=== PATIENT | female | born 1975 | race Caucasian/White ===

== ENCOUNTER 2016-05-15 10:14 | Outpatient (RCR) | payer OTHER ==
[~2016-05-15 10:14] MED LIST: ALBUTEROL0.83 MG/ML IH; ALVESCO160 MCG/Ac IH; BACTRIM DS 8001 TAB PO; CEFTIN; CEFTIN 250250 MG/TAB PO; CELEXA 20MG20 MG/TAB PO; CLARITIN 1010 MG/TAB PO; DULERA1 ARO IH; IPRATROPIUM BROM3 M1 IH; KLONOPIN 0.5MG0.5 MG PO; LEVAQUIN 5500 MG/TA1 PO; LEVAQUIN 750MG750 M1 PO; LEVOXYL0.025 MG PO; LYRICA 50MG CAP50 MG PO; NAPROSYN500 MG PO; NEXIUM 20MG20 MG PO; NO HOME MEDICATIONS; NORCO 325 MG-51 TAB PO; NORCO 325 MG-7.1 TAB PO; PERCOCET 325 MG1 TA2 PO; PREDNISONE20 MG PO; REGLAN 10MG10 MG/TAB PO; RISPERDAL 0.5M0.5 MG PO; RISPERDAL 1M1 MG/TAB PO; SKELAXIN 800MG800 MG PO; TYLENOL/CODEINE1 ML PO; ULTRAM 50MG TAB50 MG PO; ZITHROMAX 250M250 MG PO; ZOFRAN 4MG T4 MG/TAB PO; ZOMIG5 MG PO; [UNRECOGNIZED DRUG - OTHER] PO
== END 2016-06-23 13:11 ==
LOC: WSOH 10:14
DX: S39.012A Strain of muscle, fascia and tendon of lower back, initial encounter (principal); M25.521 Pain in right elbow; X50.0XXA Overexertion from strenuous movement or load, initial encounter; Y99.0 Civilian activity done for income or pay

== ENCOUNTER 2016-08-24 11:15 | Outpatient (RCR) | payer OTHER | END 2016-10-25 | LOC: WSPT | DX: M25.521 Pain in right elbow (principal); Z98.890 Other specified postprocedural states | CPT/HCPCS: G0283-GP ==

== ENCOUNTER → 2017-02-26 | Outpatient (CLI) | payer OTHER | LOC: COL.RAD 12:44 | DX: R05 Cough (principal) ==

== ENCOUNTER 2017-03-23 08:23 | Emergency (ER) | payer OTHER ==
[~2017-03-23] VITALS: Ht 152.4 cm; Wt 105.0 kg
[2017-03-23 08:46] VITALS: BP 136/68; TEMP 99.4
[2017-03-23 11:13] LABS: INFLUENZA A POSITIVE; INFLUENZA B NEGATIVE
[2017-03-23] MEDS ORDERED: PREDNISONE20 MG PO (11:44)
[2017-03-23] MEDS ORDERED: TUSS PO (11:44)
[2017-03-23 12:26] VITALS: PULSE 88
== END 2017-03-23 12:17 | disposition home or self-care (01) ==
LOC: COL.ER 08:23
PROVIDERS: Nurse Practitioner
DX: J10.1 Influenza due to other identified influenza virus with other respiratory manifestations (principal); J40 Bronchitis, not specified as acute or chronic
CPT/HCPCS: J7512

== ENCOUNTER 2018-05-06 11:29 | Emergency (ER) | payer OTHER ==
[~2018-05-06] VITALS: Ht 160 cm; Wt 108.6 kg
[~2018-05-06 11:29] MED LIST changes: +TUSS PO
[2018-05-06 11:33] VITALS: TEMP 98.5
[2018-05-06] MEDS ORDERED: PREDNISONE20 MG PO (12:21)
[2018-05-06] MEDS ORDERED: PROAIR HFA0.09 MG/AC IH (12:21)
[2018-05-06 12:43] VITALS: BP 114/78; PULSE 95
== END 2018-05-06 12:43 | disposition home or self-care (01) ==
LOC: COL.ER 11:29
DX: J45.901 Unspecified asthma with (acute) exacerbation (principal)
CPT/HCPCS: J7512

== ENCOUNTER 2018-09-13 10:47 | Outpatient (RCR) | payer OTHER ==
[~2018-09-13 10:47] MED LIST changes: +PROAIR HFA0.09 MG/AC IH
== END 2018-09-16 10:02 | disposition home or self-care (01) ==
LOC: WSOH 10:47
DX: S93.402A Sprain of unspecified ligament of left ankle, initial encounter (principal); X50.0XXA Overexertion from strenuous movement or load, initial encounter; Y92.214 College as the place of occurrence of the external cause; Y93.89 Activity, other specified; Y99.0 Civilian activity done for income or pay

== ENCOUNTER 2018-09-13 10:47 | Outpatient (RCR) | payer OTHER | END 2018-12-12 | disposition still patient (30) | LOC: WSOH | DX: S93.402D Sprain of unspecified ligament of left ankle, subsequent encounter (principal) ==

== ENCOUNTER 2019-12-28 00:03 | Emergency (ER) | payer SELFPAY ==
[~2019-12-28] VITALS: Ht 152.4 cm; Wt 111.4 kg
[2019-12-28 00:36] VITALS: TEMP 99.3
[2019-12-28 02:46] VITALS: BP 114/70; PULSE 78
== END 2019-12-28 02:46 | disposition home or self-care (01) ==
LOC: COL.ER 00:03
DX: S90.31XA Contusion of right foot, initial encounter (principal); E03.9 Hypothyroidism, unspecified; Z79.52 Long term (current) use of systemic steroids; Z79.890 Hormone replacement therapy; W31.82XA Contact with other commercial machinery, initial encounter; Y92.59 Other trade areas as the place of occurrence of the external cause

== ENCOUNTER → 2020-06-17 | Outpatient (CLI) | payer OTHER | LOC: COL.RAD 07:51 | DX: N20.0 Calculus of kidney (principal); Z90.49 Acquired absence of other specified parts of digestive tract; Z90.89 Acquired absence of other organs ==

== ENCOUNTER 2021-08-01 13:37 | Outpatient (RCR) | payer OTHER | END 2021-08-18 | disposition home or self-care (01) | LOC: WSOH | DX: T24.511A Corrosion of first degree of right thigh, initial encounter (principal); J45.909 Unspecified asthma, uncomplicated; E03.9 Hypothyroidism, unspecified; J42 Unspecified chronic bronchitis; Z90.49 Acquired absence of other specified parts of digestive tract; Z90.89 Acquired absence of other organs; Z98.890 Other specified postprocedural states; Y99.0 Civilian activity done for income or pay ==

== ENCOUNTER → 2021-09-22 | Emergency (ER) | payer OTHER | LOC: COL.ER 12:36 | DX: R69 Illness, unspecified (principal) ==

== ENCOUNTER → 2021-11-07 | Outpatient (CLI) | payer OTHER | LOC: COL.RAD 07:37 | DX: R10.31 Right lower quadrant pain (principal) ==

== ENCOUNTER 2022-06-14 15:23 | Outpatient (RCR) | payer OTHER | END 2022-06-18 | disposition home or self-care (01) | LOC: WSOH | DX: M25.572 Pain in left ankle and joints of left foot (principal); J45.909 Unspecified asthma, uncomplicated; E03.9 Hypothyroidism, unspecified; Y99.0 Civilian activity done for income or pay | CPT/HCPCS: 28005; L1930 ==

== ENCOUNTER 2023-02-16 10:22 | Emergency (ER) | payer OTHER ==
[~2023-02-16] VITALS: Ht 152.4 cm; Wt 96.4 kg
[2023-02-16 10:28] VITALS: TEMP 98.2
[2023-02-16 10:54] LABS: BASO # 0.1 K/mm3 (0.0-0.2); EOS # 0.1 K/mm3 (0.0-0.7); EOS % 1.8 % (0.0-4.0); GRAN # 4.1 K/mm3 (1.4-6.5); GRAN % 56.9 % (42.2-75.2); HEMATOCRIT 41.1 % (37.0-47.0); HEMOGLOBIN 14.1 g/dl (12.5-16.0); LYMPH # 2.4 K/mm3 (1.2-3.4); LYMPH % 33.3 % (20.0-51.0); MEAN CELL VOLUME 87 fl (80.0-100.0); MEAN CORPUSCULAR HEMOGLOBIN 30 pg (27-31); MEAN CORPUSCULAR HGB CONC 34 g/dl (33.0-37.0); MEAN PLATELET VOLUME 9.6 fl (7.4-10.4); MONO # 0.5 K/mm3 (0.1-0.6); MONO % 6.7 % (1.7-9.3); PLATELET COUNT 507 K/mm3 (130-400); RED BLOOD COUNT 4.75 M/mm3 (4.10-5.30); REDCELL DISTRIBUTION WIDTH-CV 12.1 % (11.5-14.5)
[2023-02-16 11:12] LABS: BILIRUBIN,TOTAL 0.6 mg/dL (0.2-1.2); CALCIUM 9.4 mg/dL (8.4-10.2); CREATININE, serum 0.72 mg/dL (0.57-1.11); POTASSIUM 3.5 mmol/L (3.5-4.5); TOTAL PROTEIN 7.1 gm/dL (6.2-8.1)
[2023-02-16] MEDS ORDERED: REGLAN 10MG10 MG/TAB PO (12:18)
[2023-02-16 13:29] VITALS: BP 110/68; PULSE 78
== END 2023-02-16 13:29 | disposition home or self-care (01) ==
LOC: COL.ER 10:22
PROVIDERS: Emergency Medicine
DX: R53.1 Weakness (principal); R11.0 Nausea; R42 Dizziness and giddiness
CPT/HCPCS: J7120